=== PATIENT | male | born 1985 | race Two or more races ===

== ENCOUNTER 2016-10-19 15:38 | Emergency (ER) | payer BC ==
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
[2016-10-19] MEDS ORDERED: Lidocaine 2% Viscous Solution 15 ML Cup PO PRN (16:07)
[2016-10-19] MEDS ORDERED: Benzocaine 20% Topical Spray UD MUCMEM ONE (16:07)
[2016-10-19] MEDS ORDERED: Ketorolac 60 MG/2 ML SDV IM ONE (16:07)
[2016-10-19 17:18] VITALS: BP 129/81
== END 2016-10-19 17:01 | disposition home or self-care (01) ==
LOC: MW.ED 15:38
DX: K08.9 Disorder of teeth and supporting structures, unspecified (principal); M54.2 Cervicalgia; R68.84 Jaw pain; F17.210 Nicotine dependence, cigarettes, uncomplicated
CPT/HCPCS: 96372; 99282; A9270; J1885; 99283